=== PATIENT | female | born 1985 | race Hispanic/Latino ===

== ENCOUNTER 2017-09-20 18:39 | Emergency (ER) | payer MEDICAID ==
[2017-09-20 18:46] VITALS: O2SAT 99
--- NOTE | 2017-09-20 19:05 | ED PDOC ---
HPI: Abdomen Time Seen by Provider: 09/20/17 18:50 Chief Complaint (Nursing): Abdominal Pain Chief Complaint (Provider): Abdominal pain History Per: Patient History/Exam Limitations: no limitations Onset/Duration Of Symptoms: Other (1 week) Current Symptoms Are (Timing): Still Present Additional Complaint(s): Patient is a 32 y/o female with a past medical history of an ovarian cyst presenting to the emergency department for abdominal pain ongoing for one week. Reports that the pain is located primarily in her lower abdominal region; however, she also feels sharp pain in her upper abdominal region when she sneezes. Denies dysuria or other complaints. Admits to being sexually active (but denies concern for possible STD) and having irregular periods, with last period occurring on 08/14/17. PCP: Dr. Tess Mcgowan Last Menstral Period: 08/14/17 Para: 1 Past Medical History Reviewed: Historical Data, Nursing Documentation, Vital Signs Vital Signs: Last Vital Signs Temp 97.5 F L 09/20/17 18:43 Pulse 96 H 09/20/17 18:43 Resp 18 09/20/17 18:43 BP 148/95 H 09/20/17 18:43 Pulse Ox 99 09/20/17 19:39 - Medical History Other PMH: Ovarian Cyst - Surgical History Surgical History: - Family History Family History: States: Unknown Family Hx - Social History Current smoker - smoking cessation education provided: No Ex-Smoker (has not smoked in the last 12 months): No Alcohol: Social Drugs: Denies - Home Medications Home Medications: Ambulatory Orders Medication Instructions Recorded Sulfamethoxazole/Trimethoprim 1 tab PO BID #6 tab 09/20/17 [Bactrim DS 800 mg-160 mg] - Allergies Allergies/Adverse Reactions: Allergies Allergy/AdvReac Type Severity Reaction Status Date / Time No Known Allergies Allergy Verified 09/20/17 18:43 Review of Systems ROS Statement: Except As Marked, All Systems Reviewed And Found Negative Gastrointestinal: Positive for: Abdominal Pain Genitourinary Female: Negative for: Dysuria Physical Exam - Reviewed Nursing Documentation Reviewed: Yes Vital Signs Reviewed: Yes - Physical Exam Appears: Positive for: Well, Non-toxic, No Acute Distress Head Exam: Positive for: ATRAUMATIC, NORMAL INSPECTION, NORMOCEPHALIC Skin: Positive for: Normal Color, Warm, Dry Eye Exam: Positive for: Normal appearance Neck: Positive for: Normal Cardiovascular/Chest: Positive for: Regular Rate, Rhythm Respiratory: Negative for: Accessory Muscle Use, Respiratory Distress Gastrointestinal/Abdominal: Positive for: Normal Exam, Soft. Negative for: Tenderness Pelvic Exam: Positive for: Other (mild suprapubic tenderness). Negative for: Tender Adnexa Extremity: Positive for: Normal ROM Neurologic/Psych: Positive for: Alert, Oriented (x3) - Laboratory Results Result Diagrams: 09/20/17 19:40 09/20/17 19:40 - ECG O2 Sat by Pulse Oximetry: 99 (RA) Pulse Ox Interpretation: Normal - Progress ED Course And Treament: FINDINGS: Uterus/cervix: No acute findings. The endometrial stripe is normal in appearance and thickness with a maximal thickness of 15 mm. 11 mm nabothian cyst. Right ovary: The right ovary is only visualized via transabdominal imaging. It is normal in size, measuring 2.4 x 1.1 x 3 cm. There is a 2.9 x 2.7 x 3 cm anechoic lesion abutting the right ovary. Doppler imaging demonstrates vascular flow in the right ovary. Left ovary: The left ovary is not identified. No left adnexal mass is visualized. Free fluid: No pelvic free fluid is visualized. Other findings: No test result is received. IMPRESSION: 1. A 3 cm anechoic lesion abutting the right ovary is most consistent with a benign exophytic ovarian cyst or paraovarian cyst. No evidence of ovarian torsion. 2. The left ovary is not identified. No left adnexal mass is visualized. Medical Decision Making Medical Decision Making: Time: 18:52 Initial impression: Abdominal pain Initial plan: ED Urine Urine Urinalysis Transvaginal ultrasound Reevaluation 19:10 Negative test noted. GC culture was sent to lab. ~ Scribe Attestation: Documented by Carol Song, acting as a scribe for QUINTON Rankin. Provider Scribe Attestation: All medical record entries made by the Scribe were at my direction and personally dictated by me. I have reviewed the chart and agree that the record accurately reflects my personal performance of the history, physical exam, medical decision making, and the department course for this patient. I have also personally directed, reviewed, and agree with the discharge instructions and disposition. Disposition - Clinical Impression Clinical Impression: Ovarian cyst - Patient ED Disposition Is Patient to be Admitted: No - Disposition [facility] Disposition: Routine/Home Disposition Time: 20:35 Condition: FAIR Prescriptions: Sulfamethoxazole/Trimethoprim [Bactrim DS 800 mg-160 mg] 1 tab PO BID #6 tab Instructions: Urinary Tract Infection in Women (DC), Ovarian Cyst (ED) Forms: [id number] (Occitan)
[2017-09-20 19:42] LABS: URINE BILIRUBIN NEGATIVE (NEGATIVE); URINE BLOOD SMALL (NEGATIVE); URINE GLUCOSE (UA) NEG (Normal); URINE KETONE NEGATIVE (NEGATIVE); URINE LEUKOCYTE ESTERASE NEG Leu/uL (Negative); URINE PROTEIN NEGATIVE (NEGATIVE); URINE UROBILINOGEN 0.2-1.0 mg/dL (0.2-1.0)
[2017-09-20 19:46] LABS: RBC URINE 10 /hpf (0-3); URINE COLOR 10 (YELLOW); WBC URINE 5 /hpf (0-5)
[2017-09-20 19:52] LABS: BASO # 0.1 K/uL (0.0-0.2); BASO % 0.6 % (0.0-2.0); EOS # 0.1 K/uL (0.0-0.7); EOS % 0.8 % (0.0-4.0); HEMATOCRIT 40.7 % (34.0-47.0); LYMPH % 22.3 % (20.0-40.0); MEAN CELL VOLUME 84.2 fl (81.0-99.0); MEAN CORPUSCULAR HEMOGLOBIN 27.9 pg (27.0-31.0); MEAN CORPUSCULAR HGB CONC 33.2 g/dL (33.0-37.0); MONO # 0.6 K/uL (0.0-0.8); MONO % 6.3 % (0.0-10.0); NEUT # 6.4 K/uL (1.8-7.0); RED CELL DISTRIBUTION WIDTH 14.1 % (11.5-14.5); WHITE BLOOD COUNT 9.1 K/uL (4.8-10.8)
[2017-09-20 20:02] LABS: BLOOD UREA NITROGEN 10 mg/dl (7-17); CALCIUM 8.5 mg/dL (8.4-10.2); CARBON DIOXIDE 27 mmol/L (22-30); CHLORIDE 105 mmol/L (98-107); GFR AFRICAN-AMERICAN > 60; GLUCOSE,RANDOM 106 mg/dL (65-105); POTASSIUM 3.5 MMOL/L (3.6-5.0); SODIUM 141 mmol/l (132-148)
[2017-09-21 02:20] VITALS: BP 135/81; PULSE 86; RESP 17; TEMP 98
--- NOTE | 2017-09-21 09:19 | US ---
HISTORY: r/o ovarian cyst COMPARISON: None available. TECHNIQUE: Transvaginal and transabdominal FINDINGS: UTERUS: Measures 10.1 x 5.0 x 7.1 cm. Normal in size and appearance. No fibroid or other mass lesion seen. ENDOMETRIUM: Measures 14 mm in diameter. Unremarkable. CERVIX: No cervical abnormality identified. RIGHT OVARY: Measures 2.3 x 1.0 x 2.9 cm. No solid mass. Normal flow. Right para ovarian simple cyst, 2.7 x 2.8 x 2.9 cm. LEFT OVARY: Not visualized FREE FLUID: No significant free fluid noted. OTHER FINDINGS: None. IMPRESSION: 2.9 cm simple right paraovarian cyst. Otherwise unremarkable examination.
== END 2017-09-20 21:00 | disposition home or self-care (01) ==
LOC: H.ER 18:39
DX: N83.201 Unspecified ovarian cyst, right side (principal)

== ENCOUNTER 2018-11-20 17:27 | Emergency (ER) | payer MEDICAID ==
[2018-11-20 17:52] VITALS: O2SAT 99
--- NOTE | 2018-11-20 19:15 | ED PDOC ---
HPI: Abdomen Time Seen by Provider: 11/20/18 17:56 Chief Complaint (Nursing): Abdominal Pain History Per: Patient Additional Complaint(s): Pt. states for the past 2-3 days she's had suprapubic pain radiating to both lower quadrants and lower back associated with urinary frequency without dysuria. Pt. states she is currently 6-8 weeks . Denies vaginal bleeding, N/V/D, fever, dysuria, hematuria, weakness, fever, care, hx of ectopic . Past Medical History Reviewed: Historical Data, Nursing Documentation, Vital Signs Vital Signs: Last Vital Signs Temp 98.4 F 11/20/18 17:49 Pulse 109 H 11/20/18 17:49 Resp 18 11/20/18 17:49 BP 137/79 11/20/18 17:49 Pulse Ox 99 11/20/18 17:49 - Medical History PMH: Asthma Denies: Chronic Kidney Disease - Surgical History Surgical History: - Family History Family History: States: No Known Family Hx - Immunization History Hx Tetanus Toxoid Vaccination: No Hx Influenza Vaccination: No Hx Pneumococcal Vaccination: No - Home Medications Home Medications: Ambulatory Orders Medication Instructions Recorded Albuterol HFA [Ventolin HFA 90 2 puff INH PRN PRN 10/13/17 mcg/actuation (8 g)] - Allergies Allergies/Adverse Reactions: Allergies Allergy/AdvReac Type Severity Reaction Status Date / Time No Known Allergies Allergy Verified 10/13/17 22:14 Review of Systems ROS Statement: Except As Marked, All Systems Reviewed And Found Negative Genitourinary Female: Positive for: Pelvic Pain Physical Exam - Physical Exam Appears: Positive for: Well, Non-toxic, No Acute Distress Skin: Positive for: Normal Color, Warm. Negative for: Rash Eye Exam: Positive for: Normal appearance Gastrointestinal/Abdominal: Positive for: Normal Exam, Soft. Negative for: T enderness Back: Positive for: Normal Inspection. Negative for: L CVA Tenderness, R CVA Tenderness Neurologic/Psych: Positive for: Alert, Oriented (x3). Negative for: Aphasia, Facial Droop - Laboratory Results Result Diagrams: 11/20/18 18:50 11/20/18 18:50 - ECG O2 Sat by Pulse Oximetry: 99 - Progress ED Course And Treament: Labs, OB TVUS ordered. Disposition - Clinical Impression Clinical Impression: Pelvic pain during - Patient ED Disposition Is Patient to be Admitted: Transfer of Care (Signed out to Олег SORIA pending US results) - Disposition Disposition Time: 20:03 Condition: STABLE Forms: [employer] (American)
[2018-11-20 19:25] LABS: BASO # 0.1 K/uL (0.0-0.2); BASO % 0.5 % (0.0-2.0); EOS # 0.1 K/uL (0.0-0.7); EOS % 0.9 % (0.0-4.0); HEMOGLOBIN 12.7 g/dL (12.0-16.0); LYMPH # 1.9 K/uL (1.0-4.3); LYMPH % 19.7 % (20.0-40.0); MEAN CELL VOLUME 86.5 fl (81.0-99.0); MEAN CORPUSCULAR HGB CONC 32.4 g/dL (33.0-37.0); MEAN PLATELET VOLUME 8.2 fl (7.2-11.7); MONO # 0.7 K/uL (0.0-0.8); MONO % 7.4 % (0.0-10.0); NEUT # 7.1 K/uL (1.8-7.0); NEUT % 71.5 % (50.0-75.0); NRBC % 0.1 % (0.0-0.0); RBC 4.55 Mil/uL (3.80-5.20); RED CELL DISTRIBUTION WIDTH 15.2 % (11.5-14.5); WHITE BLOOD COUNT 9.9 K/uL (4.8-10.8)
[2018-11-20 19:30] LABS: SQUAMOUS EPITHIAL 2 /hpf (0-5); URINE BACTERIA RARE (<OCC); URINE BILIRUBIN NEGATIVE (NEGATIVE); URINE BLOOD NEGATIVE (NEGATIVE); URINE CLARITY CLOUDY (Clear); URINE COLOR YELLOW (YELLOW); URINE GLUCOSE (UA) NEG (NEGATIVE); URINE LEUKOCYTE ESTERASE NEG Leu/uL (Negative); URINE PROTEIN NEGATIVE (NEGATIVE); URINE UROBILINOGEN 0.2-1.0 mg/dL (0.2-1.0)
[2018-11-20 19:44] LABS: ALB/GLOB RATIO 1.2 (1.0-2.1); ALBUMIN 3.9 g/dL (3.5-5.0); ALT/SGPT 49 U/L (9-52); AST/SGOT 30 U/L (14-36); BLOOD UREA NITROGEN 11 mg/dl (7-17); CALCIUM 9.2 mg/dL (8.4-10.2); GFR NON-AFRICAN AMERICAN > 60
--- NOTE | 2018-11-20 20:28 | ED PDOC ---
- Laboratory Results Result Diagrams: 11/20/18 18:50 11/20/18 18:50 - ECG O2 Sat by Pulse Oximetry: 99 Medical Decision Making Medical Decision Making: Patient endorsed to me by QUINTON Kapoor pending results of TVUS. 2339 US Findings Uterus Single Live intrauterine gestation. pole not seen. Gestational sac diameter is 1.1 cm, equivalent to 5 weeks 2 days gestation. Yolk sac is seen, measures 0.36 cm. Heart rate is not present. Uterus measures 13.9 x 6.4 x 7.6 cm. Fundal fibroid anterior/lateral to the gestational sac measuring 3.9 x 3.4 x 3 cm. Cervix No cervical abnormality seen. Right Ovary Measures 3.0 x 2.9 x 2.6 cm. No mass. Normal flow. Left Ovary Measures 3.0 x 1.9 x 2.0 cm. No mass. Normal flow. Free Fluid None. Other Findings None. Impression Early single intrauterine gestation gestational sac and yolk sac only seen. Follow up study in 1 week is recommended. Fundal fibroid anterior/lateral to gestational sac. Normal ovaries. 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 If you start to have vaginal bleeding, dizziness, return to ER. You can use Tylenol for discomfort. Avoid Ibuprofen. Forms: [employer] (Burundian) Print Language: TURKISH
[2018-11-21 00:37] VITALS: BP 122/76; PULSE 71; RESP 16; TEMP 98
--- NOTE | 2018-11-21 11:50 | US ---
Date of service: 11/20/2018 HISTORY: pelvic pain COMPARISON: 09/20/2017 TECHNIQUE: Transvaginal FINDINGS: UTERUS: Measures 13.9 x 6.4 x 7.6 cm. Normally anteverted. A fundal fibroid measuring 3.9 x 3.4 x 3.0 cm in size is noted. This appears to have the endometrium above it at the fundal level draped over it. This intramural to possible sub sub mucosal fibroid here is compatible with this appearance was not the apparent or depicted on the prior study. This fibroid appears "anterior" (although posterior on these images) and lateral to the anterior and lateral to the gestational sac is also suggested. An intrauterine gestational sac is present mean sac diameter 1.1 cm corresponding to 5 weeks 2 days. A yolk sac measuring 0.36 cm is also present. No embryonic pole is noted this time. CERVIX: No cervical abnormality identified. RIGHT OVARY: Measures 3.0 x 2.9 x 2.6 cm. No solid mass. Normal flow. LEFT OVARY: Measures 3.0 x 1.9 x 2.0 cm cm. No solid mass. Normal flow. FREE FLUID: No significant free fluid noted. OTHER FINDINGS: None. IMPRESSION: Intrauterine gestational sac with yolk sac who is the gestational age by ultrasound parameters is compatible with ultrasound menstrual age of 5 weeks 2 days +/-0 weeks 3 days. Based on patient's LMP of 10/11/2018 the gestational age by this LMP is 5 weeks 5 days. No embryonic/ pole is identified at this time. Six consider follow-up pelvic ultrasound imaging in 7 to 10 days to reassess. Some of these images the gestational sac has a somewhat elongated appearance this may be associated with some of the mass effect (indirect) from the fundal referenced above. No vaginal bleeding is referenced. Continued close follow-up is recommended to assess gestational viability and progression. Concordant results (preliminary interpretation) provided by [employer]. Please note that no comments can be assessed at this time in terms of viability is no embryo or pole is identified. Enhance no cardiac activity can be so stated. These findings may relate to an early gestational less than 6 weeks without the embryonic pole shown. Clinical follow-up as detailed above is recommended.
== END 2018-11-21 00:38 | disposition home or self-care (01) ==
LOC: H.ER 17:27
DX: O26.891 Other specified pregnancy related conditions, first trimester (principal); Z3A.01 Less than 8 weeks gestation of pregnancy